=== PATIENT | female | born 1990 | race Caucasian/White ===

== ENCOUNTER 2023-01-29 00:36 | Day surgery (SDC) | payer OTHER, SELFPAY ==
[2023-01-24 11:57] VITALS: BMI 43.6
--- NOTE | 2023-01-24 12:02 | PC.NURSE ---
Report to the Outpatient Waiting Room, entrance under the green pavilion located off [facility], at time 0700 on date 01/29/23. Planned Procedure Time: 0900. Time changes happen often and if your time is changed the preop area will call you the afternoon before. - You and your visitor will be asked to self-screen and do not enter if you have any COVID symptoms. - A mask is optional within the hospital at this time. Patients may have clear liquids (water, carbonated beverages, clear teas, apple juice) until 3 hours prior to surgery with a maximum of 20 ounces. - No food from midnight until time of surgery Take the following medications with a SIP of water the morning of surgery: BUPROPION, CONTROL PILL, LEVOTHYROXINE, LIOTHYRONINE DO NOT STOP ANY OF YOUR OTHER PRESCRIPTION MEDICATIONS PRIOR TO SURGERY ?EXCEPT THE FOLLOWING Medications to discontinue per physician: VITAMINS/SUPPLEMENTS Date to take last dose: 01/25/23 Please no make-up, nail yemeni, hairspray, perfume, deodorant, or body powder the day of surgery. No jewelry (including any body piercings) or valuables the day of surgery, leave them at home. Please take a shower or bath the night before, or the morning of, surgery with an antibacterial soap. Wear comfortable, loose fitting clothing. - Jewelry must be removed prior to entering the operating room. Rings and piercings that are not removed may be cut off. - The hospital will not accept responsibility for valuables. - Please leave all valuables, including medications, at home the day of surgery. If you are going home after surgery, a licensed solid waste truck driver must drive you home. - NO public transportation without another adult if you receive anesthesia. - We recommend that an adult stay with you for 24 hours following discharge. - We also recommend that you do not drive, make important decision, drink alcoholic beverages, or take any drugs that were not prescribed by your health care provider for at least 24 hours after your discharge time. Follow any additional instructions given to you from your surgeon. If you or anyone in your household have experienced Covid symptoms in the past week, please notify your surgeon or the nurse liaison at the phone number below for possible testing. Telephone instructions given to PT Kaye RAMIREZ and asked if any additional questions and then verbalized understanding. Patient advised to call surgeon office or pre surgery nurse liaison [phone] if any additional questions.
--- NOTE | 2023-01-28 11:06 | PM.IMHP ---
H&P: HPI History of Present Illness Date/Time: 01/28/23 11:06 Chief Complaint: request for sterilization Narrative: Beryl is a 32yo P2002, LMP 09/29/22 who presents for WWE; pap normal 11/2021. She PCOS, hypothyroidism, obesity. She follows w/ Dr. Patel. She is on OCP's, spironolactone, and metformin (has insulin insensitivity) but was also started on Mounjaro. She had blood work; testosterone was normal 09/2022. She however, reports very light to non-existent cycles. She has taken a progesterone pill and it did not really induce cycles. Had an US 12/2021 showed normal ovaries, thin lining. Rarely sexually active; does not desire future children, considering tubal ( will not get vasectomy). No breast issues. Review of Systems Constitutional: Constitutional: Denies chills, Denies fever(s) and Denies headache(s) Eyes: Eyes: Denies change in vision ENT: Denies dizziness and Denies headache(s) Cardiovascular: Cardiovascular: Denies chest pain and Denies dyspnea Respiratory: Respiratory: Denies cough and Denies dyspnea Gastrointestinal: Gastrointestinal: Denies abdominal pain and Denies change in stool character Genitourinary: Genitourinary: Denies abnormal menses, Denies pelvic pain, Denies vaginal discharge, Denies vaginal odor and Denies vaginal pruritus Neurologic: Denies dizziness and Denies headache(s) Psychiatric: Psychiatric: Denies anxiety and Denies depression [facility] Past Medical History Medical History Cobalamin deficiency Celestina's disease History of PCOS Prediabetes Vitamin B12 deficiency Vitamin D deficiency Family History Family History Mother Deep venous thrombosis Peripheral vascular disease Lupus erythematosus Pulmonary embolism Grandparent Breast cancer Other Malignant tumor of pelvis FH: malignant neoplasm of testis Other Hypercholesterolemia Hypertension Rheumatoid arthritis Uterine cancer Social History Social History Smoking status: Never smoker Alcohol intake: never Substance use: never Substance use type: does not use Living arrangements: with family Occupation/Education: unemployed Gender identity (if verbalized by the patient): Female Sexual Orientation (if Verbalized by the Patient): Straight or Heterosexual Spiritual care concerns: No Meds Home Medications and Allergies Home Medications Medication Instructions Recorded Confirmed Type clotrimazole-betamethasone 1 1 applic topical DAILY PRN itching 11/24/21 01/24/23 Rx %-0.05 % lotion #30 mL cyanocobalamin (vitamin B-12) 100 mcg subcut WEEKLY 11/24/21 01/24/23 History 1,000 mcg/mL injection solution ergocalciferol (vitamin D2) 1,250 1,250 mcg PO MONTHLY 11/24/21 01/24/23 History mcg (50,000 unit) capsule metformin 500 mg tablet,extended 1,000 mg PO DAILY 11/24/21 01/24/23 History release 24 hr spironolactone 100 mg tablet 100 mg PO DAILY 11/24/21 01/24/23 History levothyroxine 137 mcg tablet 137 mcg PO DAILY 11/20/22 01/24/23 History (Unithroid) desogestrel-e.estradiol 0.15 1 tablet PO DAILY #84 tabs 11/30/22 01/24/23 Rx mg-0.02 mg(21)/e.estrad 0.01 mg(5) tablet (Azurette (28)) bupropion HCl 150 mg 24 hr tablet, 150 mg PO QAM 01/24/23 01/24/23 History extended release cholecalciferol (vitamin D3) 125 125 mcg PO DAILY 01/24/23 01/24/23 History mcg (5,000 unit) tablet (Vitamin D3) folic acid 400 mcg tablet 0.4 mg PO DAILY 01/24/23 01/24/23 History liothyronine 5 mcg tablet 5 mcg PO DAILY 01/24/23 01/24/23 History tirzepatide 7.5 mg/0.5 mL 7.5 mg subcut WEEKLY 01/24/23 01/24/23 History subcutaneous pen injector (Gabby) Allergies Allergy/AdvReac Type Severity Reaction Status Date / Time No Known Allergies Allergy Verified 01/24/23 11:52 Exam Const: General: miguel
--- NOTE | 2023-01-29 06:58 | WPDHPUPDATE1 ---
History and Physical Update Update Date/Time: 01/29/23 06:58 History and Physical has been reviewed, including an updated exam of the patient. There are NO changes in the patient's condition. Risks, benefits, and alternatives have been discussed and questions answered. Patient agrees to proceed with procedure.
[2023-01-29 07:00] VITALS: BP 148/99; PULSE 102; RESP 16; TEMP 37; O2SAT 99
[2023-01-29] MEDS: ACETAMINOPHEN 500 MG TABLET 1000 MG PO (07:33)
--- NOTE | 2023-01-29 07:49 | WPDANESEPPF ---
Anes - Initial Pre Proc Eval Procedure: Operation Date: 01/29/23 09:00 Proposed Procedures p Bilateral Laparoscopic Salpingectomy - Alana Jones MD Date/Time: 01/29/23 07:49 Surgeon: Alana Jones MD Pre Op Diagnosis: Desired Sterilization Patient Data Age: 32 Gender: F Height: 1.61 m Weight: 117.1 kg Last Vital Signs Temp 37.0 C 01/29/23 07:00 Pulse 102 H 01/29/23 07:00 Resp 16 01/29/23 07:00 BP 148/99 H 01/29/23 07:00 Pulse Ox 99 01/29/23 07:00 O2 Del Method Room Air 01/29/23 07:00 Allergies Allergy/AdvReac Type Severity Reaction Status Date / Time No Known Allergies Allergy Verified 01/29/23 08:05 Home Medications Medication Instructions Recorded Confirmed Type clotrimazole-betamethasone 1 1 applic topical DAILY PRN itching 11/24/21 01/24/23 Rx %-0.05 % lotion #30 mL cyanocobalamin (vitamin B-12) 100 mcg subcut WEEKLY 11/24/21 01/24/23 History 1,000 mcg/mL injection solution ergocalciferol (vitamin D2) 1,250 1,250 mcg PO MONTHLY 11/24/21 01/24/23 History mcg (50,000 unit) capsule metformin 500 mg tablet,extended 1,000 mg PO DAILY 11/24/21 01/24/23 History release 24 hr spironolactone 100 mg tablet 100 mg PO DAILY 11/24/21 01/24/23 History levothyroxine 137 mcg tablet 137 mcg PO DAILY 11/20/22 01/24/23 History (Unithroid) bupropion HCl 150 mg 24 hr tablet, 150 mg PO QAM 01/24/23 01/24/23 History extended release cholecalciferol (vitamin D3) 125 125 mcg PO DAILY 01/24/23 01/24/23 History mcg (5,000 unit) tablet (Vitamin D3) folic acid 400 mcg tablet 0.4 mg PO DAILY 01/24/23 01/24/23 History liothyronine 5 mcg tablet 5 mcg PO DAILY 01/24/23 01/24/23 History tirzepatide 7.5 mg/0.5 mL 7.5 mg subcut WEEKLY 01/24/23 01/24/23 History subcutaneous pen injector (Mounjaro) acetaminophen 500 mg tablet 1,000 mg PO TID #60 tabs 01/29/23 Rx docusate sodium 100 mg capsule 100 mg PO BID #60 caps 01/29/23 Rx (Colace) ibuprofen 800 mg tablet 800 mg PO TID #30 tabs 01/29/23 Rx oxycodone 5 mg tablet 5 mg PO Q4H PRN pain #14 tabs 01/29/23 Rx Patient hx anesthesia problems: none Family hx anesthesia problems: none Results Review: All pre-operative results and documents have been reviewed as part of the pre-operative evaluation. [facility] Past Medical History Medical History Cobalamin deficiency Celestina's disease History of PCOS Prediabetes Vitamin B12 deficiency Vitamin D deficiency Family History Family History Mother Deep venous thrombosis Peripheral vascular disease Lupus erythematosus Pulmonary embolism Grandparent Breast cancer Other Malignant tumor of pelvis FH: malignant neoplasm of testis Other Hypercholesterolemia Hypertension Rheumatoid arthritis Uterine cancer Social History Social History Smoking status: Never smoker Alcohol intake: never Substance use: never Substance use type: does not use Living arrangements: with family Occupation/Education: unemployed Gender identity (if verbalized by the patient): Female Sexual Orientation (if Verbalized by the Patient): Straight or Heterosexual Spiritual care concerns: No Anes - Eval Final PreProcedure Day of Procedure 01/29/23 07:49 Patient weight: morbidly obese Heart: regular rate and rhythm Lungs: clear to auscultation Airway: Mallampati scale class II Neurological: alert and oriented Last oral intake: >/= 8 hours ASA classification: III Emergent: no Anesthetic plan: proceed Anesthesia type and monitoring: general ETT and standard monitoring Results Review: All pre-operative results and documents have been reviewed as part of the pre-operative evaluation. Informed Consent: The patient's anesthetic plan and its attendant risks and benefits were discussed with livan
[2023-01-29] MEDS: LACTATED RINGERS 1,000 ML 30 ML IV CONT ×2 (07:50→10:06)
[2023-01-29] MEDS: KETOROLAC 15 MG/ML VIAL (*BKC) IV PUSH (07:50)
[2023-01-29] MEDS: BUPIVACAINE/EPINEPHRINE 0.5% 50 ML VIAL 20 ML INFILTRATE (08:58)
--- NOTE | 2023-01-29 09:55 | P.OP_ITS ---
Procedure Note - Detailed Date of Procedure 01/29/23 Pre-op Diagnosis Desired Sterilization Post-op Diagnosis Same Procedure Performed Laparoscopic bilateral salpingectomy Surgeon Alana Jones MD Anesthesia General and Local (20cc of 0.5% Marcaine with epinephrine) Description of Procedure Beyrl was taken to the operating room where she was placed under general endotracheal anesthesia without complications. She was then prepped and draped in the usual sterile fashion in the dorsal lithotomy position with her legs in low Lance stirrups and her arms tucked at her side with a strap over her chest. A time-out was performed and no preoperative antibiotics were indicated. My attention was turned down below where her bladder was drained via straight catheterization. A bivalve speculum was then placed within the vagina where the cervix was easily identified. The anterior lip of the cervix was grasped with a single-tooth tenaculum and a diagnostic uterine manipulator was placed without complications. My gloves were changed and my attention was turned to her abdomen. An umbilical incision was made, and a 5 mm trocar was placed under direct visualization without complications. Once intra-abdominal placement was confirmed the abdomen was insufflated with carbon dioxide gas. She was then pl aced in Trendelenburg and two additional 5 mm ports were placed in the left and right lower quadrants under direct visualization without complications. The above findings were noted. The left fallopian tube was then elevated and the mesosalpinx was serially clamped, coagulated, transected using the LigaSure device until the proximal end of the fallopian tube was reached. The proximal end of the fallopian tube was cross clamped, coagulated and transected. The tube was then removed from the abdomen. The same procedure was then performed on the right side without any complications. Good hemostasis was noted. All instruments were removed from the abdomen. The insufflation was released and the trocars were removed. The 3 laparoscopic incision sites were reapproximated using 4-0 Monocryl and covered with Dermabond. The incisions were then infiltrated using 0.5% Marcaine. The uterine manipulator was removed. Sponge, lap, instrument, and needle counts were correct at the end of the procedure. Patient was awoken from general anesthesia and taken to recovery with plans of same-day discharge home. Estimated Blood Loss 10 IV Fluids 800 Urine Output 75 Pathology Yes (right and left fallopian tubes) Complications No immediate complications Condition Stable Disposition Same day [facility] Billing Surgery - Charge Forward: Surgery Billing
[2023-01-29 10:06] VITALS: BP 133/93; PULSE 109; RESP 21; TEMP 36.3; O2SAT 100
[2023-01-29 10:20] VITALS: BP 132/93; PULSE 82; RESP 17; O2SAT 100
[2023-01-29 10:35] VITALS: BP 127/83; PULSE 76; RESP 19; O2SAT 100
[2023-01-29 10:40] VITALS: BP 126/80; PULSE 83; RESP 19
[2023-01-29 11:10] VITALS: BP 110/77; PULSE 87; RESP 19
== END 2023-01-29 11:32 | disposition home or self-care (01) ==
PROVIDERS: PCP Family Medicine; Visit Provider Obstetrics & Gynecology
PROC: (CPT 49320; principal; 2023-01-29 09:00)
DX: Z30.2 Encounter for sterilization (principal); E28.2 Polycystic ovarian syndrome; R73.03 Prediabetes; E06.3 Autoimmune thyroiditis; E66.01 Morbid (severe) obesity due to excess calories; Z68.42 Body mass index [BMI] 45.0-49.9, adult; Z79.84 Long term (current) use of oral hypoglycemic drugs
CPT/HCPCS: 58661; 88302; A9270; J0330; J1100; J1885; J2250; J2405; J2704; J2710; J3010; J7120